=== PATIENT | female | born 2005 | race African-American/Black ===

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

== ENCOUNTER 2024-02-03 21:08 | Emergency (ER) | payer OTHER ==
[2024-02-03 21:13] VITALS: BMI 25.0
[2024-02-03 22:13] LABS: BASO % 0.5 % (0-2.0); EOS % 1.4 % (0-4.5); HEMATOCRIT 38.6 % (32.4-45.2); HEMOGLOBIN 13.1 GM/dL (10.7-15.3); MCHC 33.9 g/dl (32.0-36.0); MEAN CELL VOLUME 79.7 fl (80-96); MEAN PLT VOLUME 7.5 fl (7.5-11.1); MONO % 10.6 % (3.8-10.2); NEUT % 45.5 % (42.8-82.8); PLATELET COUNT 286 10^3/uL (134-434); RBC 4.85 M/mm3 (3.60-5.2); RDW 14.9 % (11.6-15.6); WHITE BLOOD COUNT 5.4 K/mm3 (4.0-10.0)
[2024-02-03 22:20] LABS: POTASSIUM 3.9 mmol/L (3.5-5.1)
[2024-02-03 22:21] LABS: CALCIUM 9.2 mg/dL (8.5-10.1)
[2024-02-03 22:22] LABS: ALBUMIN 3.9 g/dl (3.4-5.0); BLOOD UREA NITROGEN 11.2 mg/dL (7-18)
[2024-02-03 22:25] LABS: CREATININE 0.9 mg/dL (0.55-1.3)
[2024-02-03 22:27] LABS: BILIRUBIN,TOTAL 0.2 mg/dL (0.2-1); TOT PROT 7.9 g/dl (6.4-8.2)
[2024-02-04 00:40] VITALS: BP 117/66; PULSE 80; RESP 20; TEMP 98.3
== END 2024-02-04 00:58 | disposition home or self-care (01) ==
LOC: JER 21:08
DX: N93.9 Abnormal uterine and vaginal bleeding, unspecified (principal)
CPT/HCPCS: 36415; 76830-TC; 80053; 84702; 84703; 85025; 86850; 86900; 86901; 99284-25